=== PATIENT | male | born 1985 | race American Indian/Alaskan Native ===

== ENCOUNTER 2018-09-27 03:03 | Emergency (ER) | payer SELFPAY ==
[2018-09-27 03:21] VITALS: BMI 25.7
[2018-09-27] MEDS ORDERED: Povidone Iodine Oint 10% Foilpak UD ONE ×2 (03:28→05:24)
[2018-09-27] MEDS ORDERED: Lidocaine/Epi 1% 1:100000 20 ML IJ ONE (03:40)
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
[2018-09-27] MEDS ORDERED: Lidocaine 1% w Epi 1:100,000 Inj ONE (05:01)
[2018-09-27 07:23] VITALS: BP 129/63; PULSE 66; RESP 20; TEMP 97.7; O2SAT 99
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
== END 2018-09-27 07:10 | disposition home or self-care (01) ==
LOC: H.ER 03:03
DX: F10.129 Alcohol abuse with intoxication, unspecified (principal); S01.81XA Laceration without foreign body of other part of head, initial encounter; S09.90XA Unspecified injury of head, initial encounter; S02.2XXA Fracture of nasal bones, initial encounter for closed fracture; Y04.0XXA Assault by unarmed brawl or fight, initial encounter; Y92.89 Other specified places as the place of occurrence of the external cause
CPT/HCPCS: 12011; 70450; 70486; 99283; G0480

== ENCOUNTER 2018-10-02 22:20 | Emergency (ER) | payer SELFPAY ==
[2018-10-02 22:20] VITALS: BMI 25.7
[2018-10-02 22:35] VITALS: BP 125/70; PULSE 67; RESP 16; TEMP 98.4; O2SAT 99
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
== END 2018-10-02 23:04 | disposition home or self-care (01) ==
LOC: H.ER 22:20
DX: Z48.02 Encounter for removal of sutures (principal); F07.81 Postconcussional syndrome